=== PATIENT | male | born 1950 | race African-American/Black ===

== ENCOUNTER → 2017-09-05 | Outpatient (CLI) | payer MEDICARE ==
--- NOTE | 2017-09-11 09:40 | RSPPFT ---
DATE OF PROCEDURE: 09/05/17 COMMENTS: Spirometry with FVC of 2.6, FEV1 of 2.4, FEV1/FVC ratio at 92%. Total lung capacity is 61% of predicted. Diffusion capacity is 63% and normal when corrected for alveolar volume. There is a non-significant response to acutely inhaled bronchodilator. IMPRESSION: 1. Mild airways restriction. 2. No evidence of airways obstruction. 3. Reduced diffusion but normal when corrected for alveolar volume.
== END ==
LOC: HRSP 08:11
PROVIDERS: ATTEND Internal Medicine Cardiovascular Disease
DX: R06.02 Shortness of breath (principal)
CPT/HCPCS: 94060; 94726; 94729